=== PATIENT | male | born 1975 | race Two or more races ===

== ENCOUNTER 2018-03-01 02:23 | Emergency (ER) | payer BC, OTHER ==
[~2018-03-01] VITALS: Ht 182.9 cm; Wt 93.0 kg
[2018-03-01] MEDS ORDERED: ONDANSETRON 4 MG/2 ML VIAL IV ONE (02:45)
[2018-03-01] MEDS ORDERED: IV NORMAL SALINE 1000 ML BAG IV ONE (02:45)
[2018-03-01 03:03] LABS: BASOPHILS # (AUTO) 0.1 K/uL (0.0-8.0); BASOPHILS % (AUTO) 0.7 % (0.0-2.0); EOSINOPHILS # (AUTO) 0.1 K/uL (0.0-0.7); EOSINOPHILS % (AUTO) 1.1 % (0.0-7.0); HEMATOCRIT 48.2 % (36.7-47.1); HEMOGLOBIN 17.1 g/dL (12.5-16.3); LYMPHOCYTES # (AUTO) 2.1 K/uL (20.0-40.0); MEAN CORPUSCULAR HEMOGLOBIN 32.3 uug (23.8-33.4); MEAN CORPUSCULAR HGB CONC 35 g/dL (32.5-36.3); MEAN CORPUSCULAR VOLUME 91.3 fL (73.0-96.2); MONOCYTES # (AUTO) 0.7 K/uL (2.0-10.0); MONOCYTES % (AUTO) 9.7 % (0.0-11.0); NEUTROPHILS # (AUTO) 4.6 K/uL (1.8-8.9); NEUTROPHILS % (AUTO) 60.5 % (38.5-71.5); PLATELET COUNT (AUTO) 304 K/uL (152-348); RED BLOOD CELL COUNT(AUTO) 5.28 MIL/uL (4.06-5.63); WHITE BLOOD COUNT (AUTO) 7.6 K/uL (3.6-10.2)
[2018-03-01] MEDS ORDERED: ONDANSETRON 4 MG/2 ML VIAL ONE (03:03)
[2018-03-01] MEDS ORDERED: KETOROLAC TROMETHAMINE 30 MG INJ ONE (03:07)
[2018-03-01 03:15] LABS: BILIRUBIN,DIRECT 0.2 mg/dL (0.0-0.2); BILIRUBIN,TOTAL 0.7 mg/dL (0.2-1.0); CREATININE 1.4 mg/dL (0.6-1.3); POTASSIUM 3.3 mmol/L (3.5-5.1); TOTAL PROTEIN, SERUM 7.4 g/dL (6.4-8.2)
[2018-03-01] MEDS ORDERED: KETOROLAC TROMETHAMINE 30 MG INJ IVP ONE (03:15)
--- NOTE | 2018-03-01 03:50 | NUR ---
Patient discharged to home in stable conditon. Written and verbal after care instructions given. Patient verbalizes understanding of instructions. PATIENT LEFT WITH STABLE GAIT.
[2018-03-01 03:51] VITALS: BP 118/97
== END 2018-03-01 03:51 | disposition home or self-care (01) ==
LOC: ER 02:25
DX: G47.00 Insomnia, unspecified (principal); R11.0 Nausea; F17.210 Nicotine dependence, cigarettes, uncomplicated; Z88.1 Allergy status to other antibiotic agents
CPT/HCPCS: 36415; 80048; 80076; 83690; 85025; 96374; 96375; 99284; A4663; J1885; J2405; J7030

== ENCOUNTER → 2018-07-01 | Outpatient (CLI) | payer BC, OTHER | END | disposition home or self-care (01) | LOC: LAB 15:15 | PROVIDERS: ATTEND Legal Medicine | DX: M25.522 Pain in left elbow (principal) | CPT/HCPCS: 73080 ==

== ENCOUNTER 2021-04-19 05:13 | Emergency (ER) | payer BC, OTHER ==
[~2021-04-19] VITALS: Ht 180.3 cm; Wt 95.8 kg
--- NOTE | 2021-04-19 05:17 | NUR ---
PT AMBULATED TO ER C/O DRY THORAT WITH DIFFICULTY SWALLOWING SINCE YESTERDAY AM. A/O X4 DENIES SOB, NO LABORED BREATHING, AFEBRILE. DENIES CP/PRESSURE. CLEAR SPEECH, COMPLETE SENTENCES. AT BEDSIDE.
--- NOTE | 2021-04-19 05:18 | NUR ---
DR. AKBAR AT BEDSIDE, MSE IN PROGRESS.
--- NOTE | 2021-04-19 05:44 | NUR ---
Patient discharged to home in stable condition. A/O x4, no SOB or labored breathing, denies any SOB. Written and verbal after care instructions given. Patient verbalizes understanding of instructions. Stressed follow up or return to ER for worsening s/s. Steady gait. Accompanied by .
[2021-04-19 05:45] VITALS: BP 146/81
== END 2021-04-19 05:53 | disposition home or self-care (01) ==
LOC: ER 05:16
DX: R13.10 Dysphagia, unspecified (principal); F41.9 Anxiety disorder, unspecified; F17.200 Nicotine dependence, unspecified, uncomplicated; R03.0 Elevated blood-pressure reading, without diagnosis of hypertension
CPT/HCPCS: A4663

== ENCOUNTER 2021-05-25 15:03 | Outpatient (CLI) | payer BC, OTHER | END 2021-05-25 23:59 | disposition home or self-care (01) | LOC: CT 15:03 | PROVIDERS: ATTEND Legal Medicine | DX: J32.0 Chronic maxillary sinusitis (principal); J32.2 Chronic ethmoidal sinusitis; J32.3 Chronic sphenoidal sinusitis; J34.2 Deviated nasal septum; J34.3 Hypertrophy of nasal turbinates; R13.10 Dysphagia, unspecified | CPT/HCPCS: 70486; 70490 ==

== ENCOUNTER 2021-08-27 06:09 | Outpatient (CLI) | payer BC, OTHER | END 2021-08-27 23:59 | disposition home or self-care (01) | LOC: LAB 06:09 | PROVIDERS: ATTEND Otolaryngology | DX: Z75.3 Unavailability and inaccessibility of health-care facilities (principal) ==

== ENCOUNTER 2022-01-01 10:28 | Emergency (ER) | payer OTHER ==
[~2022-01-01] VITALS: Ht 182.9 cm; Wt 93.0 kg
[2022-01-01] MEDS ORDERED: KETOROLAC TROMETHAMINE 30 MG INJ ONE (10:44)
[2022-01-01] MEDS ORDERED: HYDROCODONE/APAP 10-325 MG TABLET ONE (10:44)
[2022-01-01] MEDS ORDERED: ACETAMINOPHEN 325 MG TABLET ONE (10:44)
[2022-01-01] MEDS ORDERED: diphenhydrAMINE 25 MG CAP PO ONE ×2 (10:44→10:45)
[2022-01-01] MEDS ORDERED: HYDROCODONE/APAP 10-325 MG TABLET PO ONE (10:45)
[2022-01-01] MEDS ORDERED: ACETAMINOPHEN 325 MG TABLET PO ONE (10:45)
[2022-01-01] MEDS ORDERED: KETOROLAC TROMETHAMINE 30 MG INJ IM ONE (10:45)
[2022-01-01] MEDS ORDERED: HYDROMORPHONE 1 MG/1 ML DISP.SYRIN ONE (11:14)
[2022-01-01] MEDS ORDERED: HYDROMORPHONE 1 MG/1 ML DISP.SYRIN IM ONE (11:15)
[2022-01-01] MEDS ORDERED: CYCL15CA23 PO (11:23)
[2022-01-01] MEDS ORDERED: HYDR-3980 PO (11:23)
--- NOTE | 2022-01-01 11:46 | NUR ---
Patient discharged to home in stable condition. Written and verbal after care instructions given. Patient verbalizes understanding of instructions. Stressed follow up or return to ER for worsening s/s.PT WALKS IN STEADY GAIT. PT ACCOMPANIED BY . PT NOT DRIVING.
== END 2022-01-01 11:47 | disposition home or self-care (01) ==
LOC: ER 10:28
DX: M54.50 Low back pain, unspecified (principal); F17.210 Nicotine dependence, cigarettes, uncomplicated; Z88.8 Allergy status to other drugs, medicaments and biological substances
CPT/HCPCS: 96372 ×2; 99284; J1170; J1885; A4663; Q0163

== ENCOUNTER → 2022-11-01 | Outpatient (CLI) | payer BC, OTHER ==
[~2022-11-01] MED LIST: CYCL15CA23 PO; HYDR-3980 PO
[2022-11-01 08:50] LABS: HEMATOCRIT 50.5 % (36.7-47.1); MEAN CORPUSCULAR HEMOGLOBIN 31.4 uug (23.8-33.4); MEAN CORPUSCULAR VOLUME 91.4 fL (73.0-96.2); PLATELET COUNT (AUTO) 312 K/uL (152-348)
[2022-11-01 09:09] LABS: *BILIRUBIN,URIN NEGATIVE (NEGATIVE); *BLOOD, URINE NEGATIVE (NEGATIVE); *CLARITY,URINE CLEAR (CLEAR); *COLOR,URINE YELLOW (YELLOW); *KETONES,URINE NEGATIVE (NEGATIVE); *UROBILINOGEN,URINE 0.2 E.U./dl (NORMAL); LEUKOCYTE ESTERASE ,URINE NEGATIVE (NEGATIVE); NITRITE, URINE NEGATIVE (NEGATIVE); PH,URINE 5.5 (5.0-8.0); UGLUCOSE NEGATIVE (NEGATIVE)
[2022-11-01 09:25] LABS: THYROID STIMULATING HORMONE 1.425 mIU/mL (0.358-3.740)
[2022-11-01 12:35] LABS: BILIRUBIN,TOTAL 0.7 mg/dL (0.2-1.0); CREATININE 1.1 mg/dL (0.6-1.3); POTASSIUM 3.8 mmol/L (3.5-5.1); TOTAL PROTEIN, SERUM 7.4 g/dL (6.4-8.2)
[2022-11-02 08:06] LABS: *TESTOSTERONE, SERUM 430 ng/dL (264-916)
== END | disposition home or self-care (01) ==
LOC: LAB 08:15
PROVIDERS: ATTEND Internal Medicine
DX: Z00.00 Encounter for general adult medical examination without abnormal findings (principal); K21.9 Gastro-esophageal reflux disease without esophagitis; E11.9 Type 2 diabetes mellitus without complications; R10.9 Unspecified abdominal pain; E55.9 Vitamin D deficiency, unspecified; D64.9 Anemia, unspecified; E78.00 Pure hypercholesterolemia, unspecified
CPT/HCPCS: 36415; 82746; 83550; 84153; 84402; 84403; 84443; 84550; 85025

== ENCOUNTER 2023-01-11 20:50 | Emergency (ER) | payer BC, OTHER ==
[~2023-01-11] VITALS: Ht 182.9 cm; Wt 93.0 kg
[2023-01-11] MEDS ORDERED: DIAZEPAM 5 MG TABLET ONE ×2 (21:06→23:16)
[2023-01-11] MEDS ORDERED: KETOROLAC TROMETHAMINE 15 MG INJ ONE (21:06)
[2023-01-11] MEDS ORDERED: LIDOCAINE 5% PATCH TD ONE ×2 (21:06→21:15)
[2023-01-11] MEDS ORDERED: DEXAMETHASONE SOD PHOSPHATE 10 MG INJ ONE (21:06)
[2023-01-11] MEDS ORDERED: KETOROLAC TROMETHAMINE 15 MG INJ IM ONE (21:15)
[2023-01-11] MEDS ORDERED: DIAZEPAM 2 MG TABLET PO ONE ×2 (21:15→23:15)
[2023-01-11] MEDS ORDERED: DEXAMETHASONE SOD PHOSPHATE 4 MG INJ IM ONE (21:15)
[2023-01-11 21:17] LABS: HEMATOCRIT 47.7 % (36.7-47.1); MEAN CORPUSCULAR HEMOGLOBIN 31.1 uug (23.8-33.4); MEAN CORPUSCULAR VOLUME 89.5 fL (73.0-96.2); PLATELET COUNT (AUTO) 334 K/uL (152-348)
[2023-01-11 21:29] LABS: BILIRUBIN,TOTAL 0.5 mg/dL (0.2-1.0); CREATININE 1.3 mg/dL (0.6-1.3); POTASSIUM 3.9 mmol/L (3.5-5.1); TOTAL PROTEIN, SERUM 7.1 g/dL (6.4-8.2)
[2023-01-11 21:37] LABS: *BILIRUBIN,URIN NEGATIVE (NEGATIVE); *BLOOD, URINE TRACE (NEGATIVE); *CLARITY,URINE CLEAR (CLEAR); *COLOR,URINE YELLOW (YELLOW); *KETONES,URINE TRACE (NEGATIVE); *UROBILINOGEN,URINE 0.2 E.U./dl (NORMAL); LEUKOCYTE ESTERASE ,URINE NEGATIVE (NEGATIVE); NITRITE, URINE NEGATIVE (NEGATIVE); UGLUCOSE NEGATIVE (NEGATIVE)
[2023-01-11] MEDS ORDERED: OXYCODONE HCL 5 MG TABLET ONE (21:54)
[2023-01-11] MEDS ORDERED: OXYCODONE HCL 5 MG TABLET PO ONE (22:00)
[2023-01-11 22:04] LABS: BACTERIA,URINE FEW /HPF (NONE SEEN); RBC,URINE 0-3 /HPF (0-3); WBC,URINE NONE SEEN /HPF (0-3)
[2023-01-11 22:05] LABS: SQUAMOUS EPITHELIAL CELL,UR FEW /HPF (NONE SEEN)
[2023-01-11] MEDS ORDERED: DIAZ5TAB PO (23:17)
--- NOTE | 2023-01-11 23:26 | NUR ---
Patient discharged to home in stable condition. Written and verbal after care instructions given. Patient verbalizes understanding of instructions. Stressed follow up or return to ER for worsening s/s. Patient is a/ox4, NAD noted. Patient ambulated with steady gait, accompanied by his
[2023-01-11 23:29] VITALS: BP 127/88
== END 2023-01-11 23:30 | disposition home or self-care (01) ==
LOC: ER 20:50
DX: M54.9 Dorsalgia, unspecified (principal); R31.9 Hematuria, unspecified; F17.210 Nicotine dependence, cigarettes, uncomplicated; Z88.8 Allergy status to other drugs, medicaments and biological substances; Z79.899 Other long term (current) drug therapy
CPT/HCPCS: 99285; 74176; 80053; 81001; 85025; 36415; 96372 ×2; J1100; J1885; A4663

== ENCOUNTER 2023-06-03 15:29 | Emergency (ER) | payer BC, OTHER ==
[~2023-06-03] VITALS: Ht 182.9 cm; Wt 93.0 kg
[~2023-06-03 15:29] MED LIST changes: +DIAZ5TAB PO
[2023-06-03] MEDS ORDERED: HYDROCODONE/APAP 5-325MG TABLET PO ONE (15:45)
[2023-06-03] MEDS ORDERED: KETOROLAC TROMETHAMINE 15 MG INJ IM ONE (15:45)
[2023-06-03] MEDS ORDERED: CYCLOBENZAPRINE HCL 10 MG TABLET PO ONE (15:45)
[2023-06-03] MEDS ORDERED: KETOROLAC TROMETHAMINE 15 MG INJ ONE (15:48)
[2023-06-03] MEDS ORDERED: CYCLOBENZAPRINE HCL 10 MG TABLET ONE (15:48)
[2023-06-03] MEDS ORDERED: HYDROCODONE/APAP 5-325MG TABLET ONE (15:49)
[2023-06-03] MEDS ORDERED: IBUP-1955 PO (16:10)
[2023-06-03] MEDS ORDERED: CYCL5TAB PO (16:10)
[2023-06-03] MEDS ORDERED: LIDO30AD10 TP (16:10)
[2023-06-03] MEDS ORDERED: METH4TAB3 PO (16:10)
[2023-06-03] MEDS ORDERED: HYDR-4209 PO (16:10)
[2023-06-03 16:27] VITALS: BP 131/89; O2SAT 99
== END 2023-06-03 16:32 | disposition home or self-care (01) ==
LOC: ER 15:31
DX: M54.42 Lumbago with sciatica, left side (principal); F17.210 Nicotine dependence, cigarettes, uncomplicated; Z88.8 Allergy status to other drugs, medicaments and biological substances; Z79.899 Other long term (current) drug therapy
CPT/HCPCS: 99283; 96372; J1885; A4606; A4663

== ENCOUNTER 2023-07-23 08:24 | Emergency (ER) | payer BC, OTHER ==
[~2023-07-23] VITALS: Ht 182.9 cm; Wt 93.0 kg
[~2023-07-23 08:24] MED LIST changes: +CYCL5TAB PO; +HYDR-4209 PO; +IBUP-1955 PO; +LIDO30AD10 TP; +METH4TAB3 PO
[2023-07-23 08:26] VITALS: O2SAT 97
[2023-07-23] MEDS ORDERED: AMOX-430 PO (08:51)
[2023-07-23] MEDS ORDERED: FLUT16SP16 BNOSTRILS (08:51)
[2023-07-23] MEDS ORDERED: PSEU-249 PO (08:51)
[2023-07-23] MEDS ORDERED: ACET1TAB23 PO (08:51)
[2023-07-23] MEDS ORDERED: OXYM15MI4 NS (08:51)
== END 2023-07-23 09:05 | disposition home or self-care (01) ==
LOC: ER 08:24
DX: J32.9 Chronic sinusitis, unspecified (principal); R05.9 Cough, unspecified; Z88.8 Allergy status to other drugs, medicaments and biological substances; F17.210 Nicotine dependence, cigarettes, uncomplicated; Z79.2 Long term (current) use of antibiotics; Z79.899 Other long term (current) drug therapy
CPT/HCPCS: A4606; A4663

== ENCOUNTER 2024-03-26 07:39 | Outpatient (CLI) | payer BC, OTHER ==
[~2024-03-26 07:39] MED LIST changes: +ACET1TAB23 PO; +AMOX-430 PO; +FLUT16SP16 BNOSTRILS; +OXYM15MI4 NS; +PSEU-249 PO
[2024-03-26 08:01] LABS: BASOPHILS # (AUTO) 0.1 K/UL (0.0-0.2); BASOPHILS % (AUTO) 0.9 % (0.0-2.0); EOSINOPHILS # (AUTO) 0.3 K/uL (0.0-0.7); EOSINOPHILS % (AUTO) 4.5 % (0.0-7.0); HEMATOCRIT 47.5 % (36.7-47.1); HEMOGLOBIN 16.4 g/dL (12.5-16.3); LYMPHOCYTES # (AUTO) 1.8 K/uL (0.8-4.8); LYMPHOCYTES % (AUTO) 32.5 % (20.5-51.5); MEAN CORPUSCULAR HEMOGLOBIN 31.6 uug (23.8-33.4); MEAN CORPUSCULAR HGB CONC 35 g/dL (32.5-36.3); MEAN CORPUSCULAR VOLUME 91.3 fL (73.0-96.2); MONOCYTES # (AUTO) 0.6 K/uL (0.1-1.30); MONOCYTES % (AUTO) 10.3 % (0.0-11.0); NEUTROPHILS # (AUTO) 2.9 K/uL (1.8-8.9); NEUTROPHILS % (AUTO) 51.8 % (38.5-71.5); PLATELET COUNT (AUTO) 273 K/uL (152-348); RED CELL DISTRIBUTION WIDTH 13.1 % (12.1-16.2); WHITE BLOOD COUNT (AUTO) 5.6 K/uL (3.6-10.2)
[2024-03-26 08:04] LABS: *BILIRUBIN,URIN 1+ (NEGATIVE); *BLOOD, URINE NEGATIVE (NEGATIVE); *CLARITY,URINE CLEAR (CLEAR); *COLOR,URINE YELLOW (YELLOW); *KETONES,URINE NEGATIVE (NEGATIVE); *PROTEIN,URINE 1+ (NEGATIVE); *UROBILINOGEN,URINE 0.2 E.U./dl (NORMAL); LEUKOCYTE ESTERASE ,URINE NEGATIVE (NEGATIVE); NITRITE, URINE NEGATIVE (NEGATIVE); PH,URINE 5.5 (5.0-8.0); UGLUCOSE NEGATIVE (NEGATIVE)
[2024-03-26 08:41] LABS: BACTERIA,URINE FEW /HPF (NONE SEEN); WBC,URINE 0-3 /HPF (0-3)
[2024-03-26 08:42] LABS: ALBUMIN 3.8 g/dL (3.4-5.0); POTASSIUM 3.7 mmol/L (3.5-5.1); TOTAL PROTEIN, SERUM 6.9 g/dL (6.4-8.2)
[2024-03-27 04:10] LABS: FOLATE (FOLIC ACID), SERUM 13.1 ng/mL (>3.0)
[2024-03-27 06:07] LABS: *TESTOSTERONE, SERUM 494 ng/dL (264-916)
[2024-03-31 08:08] LABS: TEST, %FREE+WK BOUND 30.2 % (9.0-46.0); TEST, FREE+WK BOUND 149.2 ng/dL (40.0-250.0)
[2024-04-02 14:11] LABS: *VITAMIN D 25-OH VIT D 91 ng/mL (.); *VITAMIN D 25-OH, D2 <1.0 ng/mL (.); *VITAMIN D 25-OH, D3 91 ng/mL (.)
== END 2024-03-26 23:59 | disposition home or self-care (01) ==
LOC: LAB 07:39
PROVIDERS: ATTEND Legal Medicine
DX: Z00.00 Encounter for general adult medical examination without abnormal findings (principal); E78.00 Pure hypercholesterolemia, unspecified; R53.1 Weakness; E11.9 Type 2 diabetes mellitus without complications; I10 Essential (primary) hypertension; E03.9 Hypothyroidism, unspecified; D64.9 Anemia, unspecified; E55.9 Vitamin D deficiency, unspecified
CPT/HCPCS: 36415; 82746; 83550; 84153; 84402; 84403; 84550; 85025

== ENCOUNTER 2024-09-01 12:05 | Emergency (ER) | payer BC, OTHER ==
[~2024-09-01] VITALS: Ht 182.9 cm; Wt 86.2 kg
[2024-09-01 12:08] VITALS: O2SAT 98
[2024-09-01] MEDS ORDERED: METH4TAB3 PO (13:09)
== END 2024-09-01 13:32 | disposition home or self-care (01) ==
LOC: ER 12:05
DX: J32.9 Chronic sinusitis, unspecified (principal); F17.200 Nicotine dependence, unspecified, uncomplicated; G89.29 Other chronic pain; Z88.7 Allergy status to serum and vaccine
CPT/HCPCS: 70486; A4606; A4663

== ENCOUNTER 2024-11-11 08:23 | Emergency (ER) | payer BC, OTHER ==
[~2024-11-11] VITALS: Ht 182.9 cm; Wt 86.2 kg
[2024-11-11] MEDS ORDERED: PRED50TA PO (08:42)
[2024-11-11] MEDS ORDERED: PSEU-249 PO (08:43)
[2024-11-11] MEDS ORDERED: AMOX-430 PO (08:43)
[2024-11-11] MEDS ORDERED: AMOXICILLIN-CLAVUL 875-125MG TABLET ONE (09:00)
[2024-11-11] MEDS ORDERED: predniSONE 50 MG TABLET ONE (09:00)
[2024-11-11] MEDS ORDERED: PSEUDOEPHEDRINE HCL 30 MG TABLET ONE (09:01)
[2024-11-11] MEDS ORDERED: LORA-782 PO (09:03)
[2024-11-11] MEDS: AMOXICILLIN-CLAVUL 875-125MG TABLET PO ONE (09:12)
[2024-11-11] MEDS: PSEUDOEPHEDRINE HCL 30 MG TABLET PO ONE (09:12)
[2024-11-11] MEDS: predniSONE 50 MG TABLET PO ONE (09:12)
[2024-11-11 09:16] VITALS: BP 136/94; TEMP 97.8; O2SAT 99
== END 2024-11-11 09:16 | disposition home or self-care (01) ==
LOC: ER 08:23
DX: J32.9 Chronic sinusitis, unspecified (principal); F17.210 Nicotine dependence, cigarettes, uncomplicated; Z79.52 Long term (current) use of systemic steroids; Z88.7 Allergy status to serum and vaccine; Z87.19 Personal history of other diseases of the digestive system; Z87.39 Personal history of other diseases of the musculoskeletal system and connective tissue
CPT/HCPCS: 99284; J7512; A4606; A4663

== ENCOUNTER 2024-11-24 17:36 | Emergency (ER) | payer BC, OTHER ==
[~2024-11-24] VITALS: Ht 182.9 cm; Wt 86.2 kg
[~2024-11-24 17:36] MED LIST changes: +LORA-782 PO; +PRED50TA PO
[2024-11-24] MEDS ORDERED: DEXAMETHASONE SOD PHOSPHATE 10 MG INJ ONE (18:05)
[2024-11-24] MEDS ORDERED: CEFTRIAXONE /D5W 50ML IVPB **ER PYXIS IV ONE (18:05)
[2024-11-24 18:09] LABS: BASOPHILS # (AUTO) 0.1 K/UL (0.0-0.2); EOSINOPHILS # (AUTO) 0.7 K/uL (0.0-0.7); EOSINOPHILS % (AUTO) 9.7 % (0.0-7.0); HEMATOCRIT 48.1 % (36.7-47.1); HEMOGLOBIN 16.8 g/dL (12.5-16.3); LYMPHOCYTES # (AUTO) 2.2 K/uL (0.8-4.8); LYMPHOCYTES % (AUTO) 29.3 % (20.5-51.5); MEAN CORPUSCULAR HGB CONC 35 g/dL (32.5-36.3); MEAN CORPUSCULAR VOLUME 91.5 fL (73.0-96.2); MONOCYTES # (AUTO) 0.8 K/uL (0.1-1.30); MONOCYTES % (AUTO) 11.1 % (0.0-11.0); NEUTROPHILS # (AUTO) 3.6 K/uL (1.8-8.9); NEUTROPHILS % (AUTO) 48.9 % (38.5-71.5); PLATELET COUNT (AUTO) 333 K/uL (152-348); RED BLOOD CELL COUNT(AUTO) 5.26 MIL/uL (4.06-5.63); RED CELL DISTRIBUTION WIDTH 13.3 % (12.1-16.2); WHITE BLOOD COUNT (AUTO) 7.4 K/uL (3.6-10.2)
[2024-11-24 18:12] LABS: DIFFERENTIAL COMMENT 1
[2024-11-24 18:17] LABS: CALCIUM 9.2 mg/dL (8.5-10.1); POTASSIUM 3.6 mmol/L (3.5-5.1)
[2024-11-24] MEDS: FLUTICASONE PROP NASAL SPRAY 16 GM BOTTLE NS ONE (18:18)
[2024-11-24] MEDS: CEFTRIAXONE 2 G in IV DEXTROSE 5% 100 ML IV ONE (18:19)
[2024-11-24] MEDS: DEXAMETHASONE SOD PHOSPHATE 4 MG INJ IV ONE (18:20)
[2024-11-24] MEDS ORDERED: PRED20TA PO ×2 (18:43→19:16)
[2024-11-24] MEDS ORDERED: LORA10CA PO (18:43)
[2024-11-24] MEDS ORDERED: AMOX-430 PO ×2 (18:43→19:16)
[2024-11-24] MEDS ORDERED: LORA10TA62 PO (19:16)
[2024-11-24 20:07] VITALS: BP 122/76; TEMP 98; O2SAT 100
== END 2024-11-24 20:07 | disposition home or self-care (01) ==
LOC: ER 17:37
DX: J01.91 Acute recurrent sinusitis, unspecified (principal); F17.210 Nicotine dependence, cigarettes, uncomplicated; Z79.52 Long term (current) use of systemic steroids; Z88.7 Allergy status to serum and vaccine; Z90.49 Acquired absence of other specified parts of digestive tract; Z88.8 Allergy status to other drugs, medicaments and biological substances
CPT/HCPCS: 36415; 70486; 85025; A4606; A4663; J0696; J1100; J3535

== ENCOUNTER 2025-02-03 07:34 | Outpatient (CLI) | payer BC, OTHER ==
[~2025-02-03 07:34] MED LIST changes: +LORA10CA PO; +PRED20TA PO
[2025-02-03 08:26] LABS: *BILIRUBIN,URIN NEGATIVE (NEGATIVE); *BLOOD, URINE NEGATIVE (NEGATIVE); *CLARITY,URINE CLEAR (CLEAR); *COLOR,URINE YELLOW (YELLOW); *KETONES,URINE NEGATIVE (NEGATIVE); *PROTEIN,URINE NEGATIVE (NEGATIVE); *UROBILINOGEN,URINE 0.2 E.U./dl (NORMAL); LEUKOCYTE ESTERASE ,URINE NEGATIVE (NEGATIVE); NITRITE, URINE NEGATIVE (NEGATIVE); PH,URINE 5.5 (5.0-8.0); UGLUCOSE NEGATIVE (NEGATIVE)
[2025-02-03 08:28] LABS: BASOPHILS % (AUTO) 0.9 % (0.0-2.0); DIFFERENTIAL COMMENT 1; EOSINOPHILS # (AUTO) 0.3 K/uL (0.0-0.7); HEMATOCRIT 47.4 % (36.7-47.1); HEMOGLOBIN 16.6 g/dL (12.5-16.3); LYMPHOCYTES # (AUTO) 1.6 K/uL (0.8-4.8); LYMPHOCYTES % (AUTO) 30.8 % (20.5-51.5); MEAN CORPUSCULAR HEMOGLOBIN 31.7 uug (23.8-33.4); MEAN CORPUSCULAR HGB CONC 35 g/dL (32.5-36.3); MEAN CORPUSCULAR VOLUME 90.6 fL (73.0-96.2); MONOCYTES # (AUTO) 0.6 K/uL (0.1-1.30); MONOCYTES % (AUTO) 10.9 % (0.0-11.0); NEUTROPHILS # (AUTO) 2.8 K/uL (1.8-8.9); NEUTROPHILS % (AUTO) 52.4 % (38.5-71.5); PLATELET COUNT (AUTO) 349 K/uL (152-348); RED BLOOD CELL COUNT(AUTO) 5.24 MIL/uL (4.06-5.63); RED CELL DISTRIBUTION WIDTH 13.2 % (12.1-16.2); WHITE BLOOD COUNT (AUTO) 5.3 K/uL (3.6-10.2)
[2025-02-03 08:50] LABS: THYROID STIMULATING HORMONE 2.369 mIU/mL (0.358-3.740)
[2025-02-03 09:07] LABS: BILIRUBIN,TOTAL 1.1 mg/dL (0.2-1.0); CALCIUM 9.1 mg/dL (8.5-10.1); URIC ACID 4.8 mg/dL (3.5-7.2)
[2025-02-03 14:04] LABS: FREE T4 (FREE THYROXINE) 1.01 ng/dL (0.76-1.46); PROSTATE SPECIFIC ANTIGEN 2.78 ng/mL (0.00-4.00)
[2025-02-04 05:09] LABS: FOLATE (FOLIC ACID), SERUM 10.8 ng/mL (>3.0)
[2025-02-04 06:10] LABS: *TESTOSTERONE, SERUM 718 ng/dL (264-916)
[2025-02-08 07:11] LABS: TEST, %FREE+WK BOUND 27.9 % (9.0-46.0); TEST, FREE+WK BOUND 200.3 ng/dL (40.0-250.0)
== END 2025-02-03 11:59 | disposition home or self-care (01) ==
LOC: LAB 07:34
PROVIDERS: ATTEND Legal Medicine
DX: Z01.812 Encounter for preprocedural laboratory examination (principal); Z00.00 Encounter for general adult medical examination without abnormal findings; E78.00 Pure hypercholesterolemia, unspecified; R53.1 Weakness; E11.9 Type 2 diabetes mellitus without complications; R10.9 Unspecified abdominal pain; E03.9 Hypothyroidism, unspecified; D64.9 Anemia, unspecified; E55.9 Vitamin D deficiency, unspecified
CPT/HCPCS: 36415; 82746; 83550; 84153; 84402; 84403; 84443; 84550; 85025

== ENCOUNTER 2025-05-23 12:17 | Emergency (ER) | payer BC, OTHER ==
[~2025-05-23] VITALS: Ht 182.9 cm; Wt 86.2 kg
[2025-05-23 12:22] VITALS: BP 152/90
[2025-05-23] MEDS ORDERED: ONDANSETRON ODT 4 MG TAB.RAPDIS ONE (13:05)
[2025-05-23] MEDS ORDERED: HYDROMORPHONE 2 MG/1 ML DISP.SYRIN ONE (13:05)
[2025-05-23] MEDS ORDERED: KETOROLAC TROMETHAMINE 30 MG INJ ONE (13:05)
[2025-05-23] MEDS: HYDROMORPHONE 1 MG/1 ML DISP.SYRIN IM ONE (13:06)
[2025-05-23] MEDS: ONDANSETRON ODT 4 MG TAB.RAPDIS SL ONE (13:07)
[2025-05-23] MEDS: KETOROLAC TROMETHAMINE 30 MG INJ IM ONE (13:07)
[2025-05-23] MEDS ORDERED: OXYC-128 PO (15:21)
[2025-05-23] MEDS ORDERED: NAPR500T6 PO (15:21)
[2025-05-23 15:47] VITALS: BP 141/80; O2SAT 99
[2025-05-23] MEDS ORDERED: ONDA4TAB5 PO (16:34)
== END 2025-05-23 15:25 | disposition home or self-care (01) ==
LOC: ER 12:17
DX: S39.012A Strain of muscle, fascia and tendon of lower back, initial encounter (principal); G89.29 Other chronic pain; F17.200 Nicotine dependence, unspecified, uncomplicated; Z79.52 Long term (current) use of systemic steroids; Z88.7 Allergy status to serum and vaccine; Z90.49 Acquired absence of other specified parts of digestive tract; X50.0XXA Overexertion from strenuous movement or load, initial encounter; Y93.89 Activity, other specified; Y92.89 Other specified places as the place of occurrence of the external cause; Y99.9 Unspecified external cause status
CPT/HCPCS: 99284; 72110; 96372 ×2; J1885; J1171; A4606; A4663; Q0162